=== PATIENT | female | born 1980 | race Caucasian/White ===

== ENCOUNTER 2017-08-06 12:06 | Day surgery (SDC) | payer BC ==
[~2017-08-06 12:06] MED LIST: Lactated Ringers 1,000 ML IV SCH; Sodium Chloride 0.9% 10 ML Syringe FLUSH PRN; Sodium Chloride 0.9% 2.5 ML Syringe FLUSH PRN
[2017-08-06] MEDS ORDERED: Doxycycline 100 MG Cap PO ONE ×2 (13:00→17:30)
--- NOTE | 2017-08-06 14:57 | PCM.PREANE ---
Preanesthetic Assessment - Anesthesia/Transfusion/Family Hx Anesthesia History: Prior Anesthesia Reaction Other Type of Anesthesia Reaction Comment: seizures post-op from inapsine Family History of Anesthesia Reaction: No Transfusion History: No Prior Transfusion(s) Intubation History: Unknown - Review of Systems General: No Symptoms Pulmonary: No Symptoms Cardiovascular: No Symptoms Gastrointestinal: No Symptoms Neurological: No Symptoms Other: Reports: None - Physical Assessment O2 Sat by Pulse Oximetry: 100 Respiratory Rate: 16 Vital Signs: Last Vital Signs Temp 36.6 C 08/06/17 12:58 Pulse 72 08/06/17 12:58 Resp 16 08/06/17 12:58 BP 115/66 08/06/17 12:58 Pulse Ox 100 08/06/17 12:58 Height: 1.78 m Weight: 78.925 kg ASA Class: 1E Mental Status: Alert & Oriented x3 Dentition: Reports: Normal Dentition Thyro-Mental Finger Breadths: 3 Mouth Opening Finger Breadths: 3 ROM/Head Extension: Full Lungs: Clear to Auscultation, Normal Respiratory Effort Cardiovascular: Regular Rate, Regular Rhythm - Allergies Allergies/Adverse Reactions: Allergies Allergy/AdvReac Type Severity Reaction Status Date / Time droperidol [From Inapsine] Allergy Seizure Verified 08/06/17 09:24 - Blood Blood Available: No - Anesthesia Plan Pre-Op Medication Ordered: None - Acknowledgements Anesthesia Type Planned: General Anesthesia Pt an Appropriate Candidate for the Planned Anesthesia: Yes Alternatives and Risks of Anesthesia Discussed w Pt/Guardian: Yes Pt/Guardian Understands and Agrees with Anesthesia Plan: Yes PreAnesthesia Questionnaire HEENT History: Reports: Other (See Below) Other HEENT History: 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 [No Known Home Meds] 08/06/17 [History] - CURRENT (IN HOUSE) MEDS Current Meds: Current Medications Lactated Ringer's (Ringers, Lactated) 1,000 mls @ 125 mls/hr IV ASDIRECTED MARSHA Last Admin: 08/06/17 13:07 Dose: 125 mls/hr Sodium Chloride (Saline Flush) 10 ml FLUSH ASDIRECTED PRN PRN Reason: Keep Vein Open Sodium Chloride (Saline Flush) 2.5 ml FLUSH ASDIRECTED PRN PRN Reason: Keep Vein Open Discontinued Medications Doxycycline Hyclate (Vibramycin) 100 mg PO ONETIME ONE Stop: 08/06/17 13:01 Last Admin: 08/06/17 13:05 Dose: 100 mg
[2017-08-06] MEDS ORDERED: Midazolam 1 MG/ML 2 ML SDV ONE (15:01)
[2017-08-06] MEDS ORDERED: fentaNYL 100 MCG/2 ML SDV ONE (15:01)
[2017-08-06] MEDS ORDERED: Propofol 200 MG/20 ML SDV ONE (15:02)
[2017-08-06] MEDS ORDERED: Ondansetron 4 MG/2 ML SDV ONE (15:03)
[2017-08-06] MEDS ORDERED: Ketorolac 30 MG/ML SDV ONE (15:03)
[2017-08-06] MEDS ORDERED: Acetaminophen 1,000 MG in Premix Bag 1 BAG IV ONE (16:53)
--- NOTE | 2017-08-06 16:53 | PCM.OPNOTE ---
- General Post-Op/Procedure Note Date of Surgery/Procedure: 08/06/17 Operative Procedure(s): Suction Dilatation and currettage Findings: EUA showed normal sized anterverted uterus Size 7 curved curette used Closed cervical os Minimal Products of conception Pre Op Diagnosis: Abnormal uterine bleeding secondary to Retained POC Post-Op Diagnosis: same Anesthesia Technique: General LMA Primary Surgeon: Spenser Rucker Anesthesia Provider: Gaurav Cervantes Pathology: products of conception Fluid Replacement, Intraop: 400 EBL in mLs: 20 Complications: None Condition: Good
--- NOTE | 2017-08-06 17:39 | PCM.POSTAN ---
POST ANESTHESIA ASSESSMENT - MENTAL STATUS Mental Status: Alert, Oriented - RESPIRATORY Respiratory Status: Respiratory Rate WNL, Airway Patent, O2 Saturation Stable - CARDIOVASCULAR CV Status: Pulse Rate WNL, Blood Pressure Stable - GASTROINTESTINAL GI Status: No Symptoms - POST OP HYDRATION Hydration Status: Adequate & Stable
--- NOTE | 2017-08-07 00:52 | OR ---
SURGEON: RAMONITA MILLER DATE OF PROCEDURE: 08/06/2017 PREOPERATIVE DIAGNOSES: Retained products of conception. POSTOPERATIVE DIAGNOSIS: Retained products of conception. INTRAVENOUS FLUID: 400 mL. ESTIMATED BLOOD LOSS: 20 mL. ANESTHESIA: General. PROCEDURE: Dilatation and suction curettage. PATHOLOGY: Products of conception. FINDINGS: Examination under anesthesia revealed a normal-sized anteverted uterus. The cervical os was closed. Suction curettage revealed a moderate amount of products of conception. BRIEF HISTORY ABOUT THE PATIENT: She is a 37-year-old 4, para 2-0-2-2, was seen in the clinic for abnormal uterine bleeding. She said she had a miscarriage in April, which was about 6 months ago, and on June 26, she was still having bleeding, and she was soaking pads every 1 hour. She had an endometrial biopsy done, which showed old placental implantation site with some necrotic chorionic villi. A beta HCG was done, it was negative. Ultrasound showed endometrium with slightly thickened in the lower uterine segment. As a result of the endometrial biopsy done and the patient's symptoms, the patient was given the option for suction curettage versus conservative management. The patient wanted to go ahead with suction curettage. DESCRIPTION OF PROCEDURE: The patient was taken to the operating room, where general anesthesia was performed without difficulty. She was placed in the dorsal lithotomy position with the Ruben stirrups. Examination under anesthesia revealed a normal-sized anteverted uterus. The cervix was closed. The patient was prepared and draped in the normal sterile fashion. A weighted speculum was inserted in the posterior aspect of the vagina. An Allis was used to grasp the anterior lip of the cervix. The uterus was dilated to accommodate the 7 mm suction curette, which was advanced to the uterine fundus. The suction was started, and the products of conception was evacuated with the curette rotating on the outward movement. Then, a gentle sharp curettage was done with a size 3 curette. The suction curettage was then reintroduced to clear the uterus. The Allis was then removed from the cervix. Good hemostasis was noted. The patient tolerated the procedure well. All instruments and pad counts were correct x2. The patient was awakened from general anesthesia and taken to the recovery room in stable condition. The patient will go home after recovering from anesthesia and meeting all criteria for discharge. She will follow up in 2 weeks in the [facility]. MARV MALDONADO /[id number] MTDD
--- NOTE | 2017-08-07 07:31 | PCM48HPAN ---
Post Anesthesia Note - EVALUATION WITHIN 48HRS OF ANESTHETIC Vital Signs in Normal Range: Yes Patient Participated in Evaluation: Yes Respiratory Function Stable: Yes Airway Patent: Yes Cardiovascular Function Stable: Yes Hydration Status Stable: Yes Pain Control Satisfactory: Yes Nausea and Vomiting Control Satisfactory: Yes Mental Status Recovered: Yes Resp Rate: 15 - COMMENTS/OBSERVATIONS Free Text/Narrative:: no anesthesia problems
== END 2017-08-06 17:50 | disposition home or self-care (01) ==
LOC: MW.SDS 12:06
PROVIDERS: ATTEND Obstetrics & Gynecology
DX: O03.1 Delayed or excessive hemorrhage following incomplete spontaneous abortion (principal); Z79.899 Other long term (current) drug therapy; Z88.8 Allergy status to other drugs, medicaments and biological substances
CPT/HCPCS: 36415; 59812; 84702; 85027; 86850; 86900; 86901; 88305; A9270; J1885; J2250; J2405; J3010; J7120; J2704

== ENCOUNTER 2019-07-31 11:29 | Day surgery (SDC) | payer BC, OTHER ==
[~2019-07-31 11:29] MED LIST changes: +Lidocaine 2% 5 ML SDV ONE; +Midazolam 1 MG/ML 2 ML SDV ONE; +Propofol 200 MG/20 ML SDV ONE; -Sodium Chloride 0.9% 10 ML Syringe FLUSH PRN; -Sodium Chloride 0.9% 2.5 ML Syringe FLUSH PRN; +fentaNYL 100 MCG/2 ML SDV ONE
[2019-07-31] MEDS ORDERED: Lactated Ringers 1,000 ML IV SCH (11:45)
[2019-07-31] MEDS ORDERED: Midazolam 1 MG/ML 2 ML SDV ONE (11:52)
[2019-07-31] MEDS ORDERED: Glycopyrrolate 0.2 MG/ML SDV ONE (11:53)
[2019-07-31] MEDS ORDERED: Ondansetron 4 MG/2 ML SDV ONE (11:53)
[2019-07-31] MEDS ORDERED: Ketorolac 30 MG/ML SDV ONE (11:53)
--- NOTE | 2019-07-31 12:05 | PCM.PREANE ---
Preanesthetic Assessment - Anesthesia/Transfusion/Family Hx Anesthesia History: Prior Anesthesia Without Reaction Other Type of Anesthesia Reaction Comment: seizures post-op from inapsine Family History of Anesthesia Reaction: No Transfusion History: No Prior Transfusion(s) Intubation History: Unknown - Review of Systems General: No Symptoms Pulmonary: No Symptoms Cardiovascular: No Symptoms Gastrointestinal: No Symptoms Neurological: No Symptoms Other: Reports: None - Physical Assessment Height: 5 ft 10 in Weight: 87.543 kg ASA Class: 1 Mental Status: Alert & Oriented x3 Airway Class: Mallampati = 1 Dentition: Reports: Normal Dentition Thyro-Mental Finger Breadths: 3 Mouth Opening Finger Breadths: 3 ROM/Head Extension: Full Lungs: Clear to Auscultation, Normal Respiratory Effort Cardiovascular: Regular Rate, Regular Rhythm - Lab Values: Laboratory Last Values WBC 5.49 K/uL (4.0-11.0) 07/31/19 11:52 RBC 4.13 M/uL (4.30-5.90) L 07/31/19 11:52 Hgb 11.9 g/dL (12.0-16.0) L 07/31/19 11:52 Hct 36.9 % (36.0-46.0) 07/31/19 11:52 MCV 89.3 fL (80.0-98.0) 07/31/19 11:52 MCH 28.8 pg (27.0-32.0) 07/31/19 11:52 MCHC 32.2 g/dL (31.0-37.0) 07/31/19 11:52 RDW Std Deviation 55.4 fl (28.0-62.0) 07/31/19 11:52 RDW Coeff of Andre 17 % (11.0-15.0) H 07/31/19 11:52 Plt Count 234 K/uL (150-400) 07/31/19 11:52 MPV 11.00 fL (7.40-12.00) 07/31/19 11:52 Nucleated RBC % 0.0 /100WBC 07/31/19 11:52 Nucleated RBCs # 0 K/uL 07/31/19 11:52 - Allergies Allergies/Adverse Reactions: Allergies Allergy/AdvReac Type Severity Reaction Status Date / Time acetaminophen [From Vicodin] Allergy Nausea and Verified 07/31/19 08:39 Vomiting droperidol [From Inapsine] Allergy Seizure Verified 07/31/19 08:39 hydrocodone [From Vicodin] Allergy Nausea and Verified 07/31/19 08:39 Vomiting - Blood Blood Available: No - Anesthesia Plan Pre-Op Medication Ordered: None - Acknowledgements Anesthesia Type Planned: Spinal Pt an Appropriate Candidate for the Planned Anesthesia: Yes Alternatives and Risks of Anesthesia Discussed w Pt/Guardian: Yes Pt/Guardian Understands and Agrees with Anesthesia Plan: Yes PreAnesthesia Questionnaire HEENT History: Reports: Other (See Below) Other HEENT History: hx of fx nose Cardiovascular History: Reports: None Respiratory History: Reports: None Gastrointestinal History: Reports: None Genitourinary History: Reports: None 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) Musculoskeletal History: Reports: Fracture Other Musculoskeletal History: hx of fx nose Neurological History: Reports: Other (See Below) Other Neuro History: hx of motion sickness Psychiatric History: Reports: None Endocrine/Metabolic History: Reports: None Hematologic History: Reports: None Immunologic History: Reports: None Oncologic (Cancer) History: Reports: None Dermatologic History: Reports: None - Past Surgical History Head Surgeries/Procedures: Reports: None HEENT Surgical History: Reports: Oral Surgery Cardiovascular Surgical History: Reports: None Respiratory Surgical History: Reports: None GI Surgical History: Reports: None Female Surgical History: Reports: Breast Implant, Section, D&C (x2) Endocrine Surgical History: Reports: None Neurological Surgical History: Reports: None Musculoskeletal Surgical History: Reports: Other (See Below) Other Musculoskeletal Surgeries/Procedures:: blane knee surgery Oncologic Surgical History: Reports: None Dermatological Surgical History: Reports: None - SUBSTANCE USE Smoking Status *Q: Never Smoker - HOME MEDS Home Medications: Home Meds Ascorbate Calcium [Vitamin C] 1 tab PO DAILY 07/31/19 [History] Ferrous Sulfate [Iron] 1 tab PO DAILY 07/31/19 [History] Folic Acid 0.8 mg PO DAILY 07/31/19 [History] - CURRENT (IN HOUSE) MEDS Current Meds: Current Medications Lactated Ringer's (Ringers, Lactated) 1,000 mls @ 100 mls/hr IV ASDIRECTED MARSHA Lactated Ringer's (Ringers, Lactated) 1,000 mls @ 100 mls/hr IV ASDIRECTED MARSHA Discontinued Medications Fentanyl (Sublimaze) Confirm Administered Dose 100 mcg .ROUTE .STK-MED ONE Stop: 07/31/19 09:26 Glycopyrrolate (Robinul) Confirm Administered Dose 0.2 mg .ROUTE .STK-MED ONE Stop: 07/31/19 11:54 Ketorolac Tromethamine (Toradol) Confirm Administered Dose 30 mg .ROUTE .STK- MED ONE Stop: 07/31/19 11:54 Lidocaine (Xylocaine-Mpf 2%) Confirm Administered Dose 5 ml .ROUTE .STK-MED ONE Stop: 07/31/19 09:26 Midazolam HCl (Versed 1 Mg/Ml) Confirm Administered Dose 2 mg .ROUTE .STK-MED ONE Stop: 07/31/19 09:26 Midazolam HCl (Versed 1 Mg/Ml) Confirm Administered Dose 2 mg .ROUTE .STK-MED ONE Stop: 07/31/19 11:53 Ondansetron HCl (Zofran) Confirm Administered Dose 4 mg .ROUTE .STK-MED ONE Stop: 07/31/19 11:54 Propofol (Diprivan 20 Ml) Confirm Administered Dose 400 mg .ROUTE .STK-MED ONE Stop: 07/31/19 09:26
[2019-07-31] MEDS ORDERED: Acetaminophen 1,000 MG in Premix Bag 1 BAG IV PRN (12:26)
[2019-07-31] MEDS ORDERED: fentaNYL 100 MCG/2 ML SDV IVPUSH PRN (12:26)
[2019-07-31] MEDS ORDERED: Sodium Chloride 0.9% 10 ML Syringe FLUSH PRN (12:37)
[2019-07-31] MEDS ORDERED: Sodium Chloride 0.9% 10 ML SDV IV PRN (12:37)
[2019-07-31] MEDS ORDERED: Sodium Chloride 0.9% 2.5 ML Syringe FLUSH PRN (12:37)
[2019-07-31] MEDS ORDERED: Azithromycin 250 MG Tab PO ONE (13:19)
[2019-07-31] MEDS ORDERED: Ondansetron 4 MG/2 ML SDV IVPUSH PRN (13:20)
[2019-07-31] MEDS ORDERED: Ketorolac 30 MG/ML SDV IVPUSH ONE (13:20)
[2019-07-31] MEDS ORDERED: Promethazine 25 MG/ML SDV IM PRN (13:20)
[2019-07-31] MEDS ORDERED: Ketorolac 30 MG/ML SDV IVPUSH PRN (13:20)
[2019-07-31] MEDS ORDERED: Morphine 4 MG/ML Syringe IVPUSH PRN (13:20)
--- NOTE | 2019-07-31 13:25 | PCM.OPNOTE ---
- General Post-Op/Procedure Note Date of Surgery/Procedure: 07/31/19 Operative Procedure(s): Suction Currettage Findings: EUA showed 8 week sized anteverted uterus Moderate Product of conception obtained Pre Op Diagnosis: Missed Post-Op Diagnosis: Missed Anesthesia Technique: Spinal Primary Surgeon: Spenser Rucker Anesthesia Provider: Best Clarke Pathology: Product of conception Fluid Replacement, Intraop: 600 EBL in mLs: 200 Complications: None Condition: Good Free Text/Narrative:: Intake & Output 07/30/19 07/31/19 07/31/19 22:59 06:59 14:59 Output Total 50 Balance -50
--- NOTE | 2019-07-31 13:48 | PCM.POSTAN ---
POST ANESTHESIA ASSESSMENT - MENTAL STATUS Mental Status: Alert - VITAL SIGNS Vital Signs: Last Vital Signs Temp 36.4 C 07/31/19 13:18 Pulse 71 07/31/19 13:43 Resp 20 07/31/19 13:43 BP 102/56 L 07/31/19 13:43 Pulse Ox 100 07/31/19 13:43 - RESPIRATORY Respiratory Status: Respiratory Rate WNL - CARDIOVASCULAR CV Status: Pulse Rate WNL - GASTROINTESTINAL GI Status: No Symptoms - POST OP HYDRATION Hydration Status: Adequate & Stable
--- NOTE | 2019-07-31 15:00 | PCM48HPAN ---
Post Anesthesia Note - EVALUATION WITHIN 48HRS OF ANESTHETIC Vital Signs in Normal Range: Yes Patient Participated in Evaluation: Yes Respiratory Function Stable: Yes Airway Patent: Yes Cardiovascular Function Stable: Yes Hydration Status Stable: Yes Pain Control Satisfactory: Yes Nausea and Vomiting Control Satisfactory: Yes Mental Status Recovered: Yes Vital Signs: Last Vital Signs Temp 36.2 C 07/31/19 13:48 Pulse 55 L 07/31/19 14:23 Resp 16 07/31/19 14:23 BP 108/76 07/31/19 14:23 Pulse Ox 99 07/31/19 14:23
--- NOTE | 2019-08-01 08:41 | OR ---
SURGEON: RAMONITA MILLER DATE OF PROCEDURE: 07/31/2019 PREOPERATIVE DIAGNOSIS: A 39-year-old G6, P 2-0-3-2, at 8 weeks and 1 day with missed . POSTOPERATIVE DIAGNOSIS: A 39-year-old G6, P 2-0-3-2, at 8 weeks and 1 day with missed . PROCEDURE: Suction dilatation and curettage. ANAESTHESIA: Spinal ESTIMATED BLOOD LOSS: 200. IV FLUIDS: 600. NOTES AND FINDINGS: EUA shows 8-week size anteverted uterus. Suction curettage yielded moderate amount of products of conception. Products sent for pathology and chromosome BRIEF HISTORY: She is a 39-year-old G6, P 2-0-3-2, who at 8w1d who wanted to be evaluated because of hx of recurrent ., she was noted to have a drop in beta-hCG, 25,000 to 23,000. At that time, a heart rate was noted, so she was asked to come back in 1 week for evaluation. At this time, there was no heart rate identified.. As a result, she was given option for conservative medical or surgical. She desired surgical management. She was explained the risks, benefits, and alternatives, and she decided to proceed. She also wanted chromosome analysis. DESCRIPTION OF PROCEDURE: The patient was taken to the operating room where the spinal anesthesia was performed without difficulty. She was prepared and draped in the dorsal lithotomy position with the Ruben stirrups. The speculum was used to expose the cervix. Allis was used to grasp the anterior lip of the cervix and cervix could accommodate the 6 mm curved curette which was placed in without any difficulty. Suction was done. After suction was done, then the 3 mm sharp curette was used for gentle curetting of the endometrium . More product of conception was retrieved, so the suction curette was changed to 8 mm which was then advanced all the way to the fundus. More product of conception was retrieved after which the procedure was finished. The bleeding was minimal at this time and the Allis was removed. The speculum was removed. The patient will receive azithromycin 1 g. The patient tolerated the procedure well. All instrument and pad counts were correct x2. MARV / ERICA /[id number] MORIAH
== END 2019-07-31 15:20 | disposition home or self-care (01) ==
LOC: MW.SDS 11:29
PROVIDERS: ATTEND Obstetrics & Gynecology
DX: O02.89 Other abnormal products of conception (principal); Z20.828 Contact with and (suspected) exposure to other viral communicable diseases
CPT/HCPCS: 36415; 59820; 85027; 87635; 88230; 88233; 88305; A9270; J0131; J1885; J2001; J2250; J2270; J2405; J2704; J3010; J3490; J7120; 01965; U0002